=== PATIENT | male | born 1980 | race Caucasian/White ===

== ENCOUNTER → 2016-05-14 | Outpatient (CLI) | payer BC | LOC: RAD 18:59 | PROVIDERS: ATTEND Neurological Surgery | DX: G35 Multiple sclerosis (principal) | CPT/HCPCS: 70553; A9577 ==

== ENCOUNTER → 2016-06-01 | Outpatient (CLI) | payer BC ==
[2016-06-01 17:35] LABS: ABSOLUTE EOSINOPHILS # (AUTO) 0.2 10^3/uL (0.0-0.6); ABSOLUTE MONOCYTES (AUTO) 0.6 10^3/uL (0.1-1.4); ABSOLUTE NEUT (AUTO) 5.8 10^3/uL (1.7-8.2); BASOPHILS % (AUTO) 0.4 % (0-2); EOSINOPHILS % (AUTO) 2.3 % (0-6); HEMATOCRIT 45.5 % (37.9-51.0); HEMOGLOBIN 15.5 g/dL (13.5-17.0); LYMPHOCYTES % (AUTO) 22.9 % (13-45); MEAN CORPUSCULAR HEMOGLOBIN 29.8 pg (27.0-33.4); MEAN CORPUSCULAR HGB CONC 34.1 g/dL (32.0-36.0); MEAN CORPUSCULAR VOLUME 87 fl (80-97); MONOCYTES % (AUTO) 7.5 % (3-13); RED BLOOD COUNT 5.21 10^6/uL (4.35-5.55); SEGMENTED NEUTROPHILS % (AUTO) 66.9 % (42-78); WHITE BLOOD COUNT 8.6 10^3/uL (4.0-10.5)
[2016-06-01 17:51] LABS: ALANINE AMINOTRANSFERASE 54 U/L (21-72); ALKALINE PHOSPHATASE 71 U/L (38-126); ANION GAP 15 (5-19); ASPARTATE AMINO TRANSFERASE 27 U/L (17-59); BILIRUBIN,DIRECT 0.2 mg/dL (0.0-0.4); BILIRUBIN,TOTAL 0.8 mg/dL (0.2-1.3); BLOOD UREA NITROGEN 20 mg/dL (7-20); CALCIUM 9.8 mg/dL (8.4-10.2); CARBON DIOXIDE 27 mmol/L (22-30); CHLORIDE 101 mmol/L (98-107); CHOLESTEROL 183.59 mg/dL (0-200); CREATININE RESULT 0.89 mg/dL (0.52-1.25); Direct HDL 65 mg/dL (>40); GLUCOSE 85 mg/dL (75-110); POTASSIUM 4.2 mmol/L (3.6-5.0); SODIUM 142.8 mmol/L (137-145); TOTAL PROTEIN 7.9 g/dL (6.3-8.2); TRIGLYCERIDES 113 mg/dL (<150)
[2016-06-01 17:59] LABS: DIRECT LDL 84 mg/dL (<100)
[2016-06-01 18:17] LABS: THYROID STIMULATING HORMONE 1.55 uIU/mL (0.47-4.68)
[2016-06-01 18:42] LABS: C-REACTIVE PROTEIN < 5.0 mg/L (<10.0)
== END ==
LOC: OD 16:44
PROVIDERS: ATTEND Student in an Organized Health Care Education/Training Program
DX: G62.9 Polyneuropathy, unspecified (principal)
CPT/HCPCS: 36415; 80053; 80061; 82306; 82607; 84439; 84443; 85025; 86140

== ENCOUNTER → 2016-06-08 | Outpatient (CLI) | payer BC | LOC: OD 13:24 | PROVIDERS: ATTEND Student in an Organized Health Care Education/Training Program | DX: G62.9 Polyneuropathy, unspecified (principal); M62.81 Muscle weakness (generalized); M47.812 Spondylosis without myelopathy or radiculopathy, cervical region; M47.816 Spondylosis without myelopathy or radiculopathy, lumbar region; M47.814 Spondylosis without myelopathy or radiculopathy, thoracic region | CPT/HCPCS: 72050; 72070; 72110 ==

== ENCOUNTER → 2016-07-02 | Outpatient (CLI) | payer BC | LOC: OD 09:53 | PROVIDERS: ATTEND Student in an Organized Health Care Education/Training Program | DX: E55.9 Vitamin D deficiency, unspecified (principal); R53.82 Chronic fatigue, unspecified | CPT/HCPCS: 36415; 82306; 82607; 86340 ==

== ENCOUNTER 2019-04-06 11:48 | Emergency (ER) | payer BC ==
[2019-04-06 12:04] VITALS: BP 137/89
--- NOTE | 2019-04-06 12:29 | ER Document Report ---
ED Medical Screen (RME) - General Chief Complaint: Chest Pain Stated Complaint: CHEST DISCOMFORT Time Seen by Provider: 04/06/19 12:24 Primary Care Provider: BALBIR MOHAN DO [Primary Care Provider] - Follow up as needed TRAVEL OUTSIDE OF THE [place] 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 Patient describes the pain as a dull ache and sometimes tightness. He will feel the pain in his left scapular area as well at times. Denies drug allergies. Denies any prolonged immobilization, distance travel, recent surgery/trauma, pe rsonal cancer history, hormone use, smoking, or previous DVT/PE. Denies HARTLEY, fever, neck pain, URI, n/v/d, Abd pain, dysuria, back pain, or rash. I have treated and performed a rapid initial assessment of this patient. A comprehensive ED assessment and evaluation of the patient, analysis of test results and completion of medical decision making process will be conducted by additional ED providers. PHYSICAL EXAMINATION: GENERAL: Well-appearing, well-nourished and in no acute distress. A&Ox4. Answers questions appropriately. LUNGS: Breath sounds clear to auscultation bilaterally and equal. No wheezes rales or rhonchi. HEART: Regular rate and rhythm without murmurs, rubs, gallops. Extremities: No cyanosis, clubbing, or edema b/l. Karri negative bilaterally. No lower extremity asymmetry. NEUROLOGICAL: Normal speech, normal gait. PSYCH: Normal mood, normal affect. - Related Data Allergies/Adverse Reactions: No Known Allergies Allergy (Verified 04/06/19 12:24) Physical Exam - Vital signs Vitals: Temp Pulse Resp BP Pulse Ox 97.7 F 77 16 137/89 H 100 04/06/19 12:03 04/06/19 12:03 04/06/19 12:03 04/06/19 12:03 04/06/19 12:03 Course - Vital Signs Vital signs: Temp Pulse Resp BP Pulse Ox 97.7 F 77 16 137/89 H 100 04/06/19 12:03 04/06/19 12:03 04/06/19 12:03 04/06/19 12:03 04/06/19 12:03 Doctor's Discharge - Discharge Referrals: BALBIR MOHAN DO [Primary Care Provider] - Follow up as needed
--- NOTE | 2019-04-06 13:11 | RADIOLOGY REPORT (SQ) ---
EXAM DESCRIPTION: CHEST 2 VIEWS COMPLETED DATE/TIME: 04/06/2019 12:47 pm REASON FOR STUDY: CP COMPARISON: None. EXAM PARAMETERS: NUMBER OF VIEWS: two views TECHNIQUE: Digital Frontal and Lateral radiographic views of the chest acquired. RADIATION DOSE: NA LIMITATIONS: none FINDINGS: LUNGS AND PLEURA: No opacities, masses or pneumothorax. No pleural effusion. MEDIASTINUM AND HILAR STRUCTURES: No masses or contour abnormalities. HEART AND VASCULAR STRUCTURES: Heart normal size. No evidence for failure. BONES: No acute findings. HARDWARE: None in the chest. OTHER: No other significant finding. IMPRESSION: NO ACUTE RADIOGRAPHIC FINDING IN THE CHEST. TECHNICAL DOCUMENTATION: JOB ID: [id number] 2010 [employer]- All Rights Reserved Reading location - IP/workstation name: [email or web address]
[2019-04-06 13:28] LABS: ABSOLUTE EOSINOPHILS # (AUTO) 0.1 10^3/uL (0.0-0.6); ABSOLUTE LYMPHOCYTES (AUTO) 1.5 10^3/uL (0.5-4.7); ABSOLUTE MONOCYTES (AUTO) 0.4 10^3/uL (0.1-1.4); BASOPHILS % (AUTO) 0.7 % (0-2); EOSINOPHILS % (AUTO) 1.2 % (0-6); HEMATOCRIT 44.4 % (37.9-51.0); LYMPHOCYTES % (AUTO) 30.1 % (13-45); MEAN CORPUSCULAR HEMOGLOBIN 29.2 pg (27.0-33.4); MEAN CORPUSCULAR HGB CONC 33.8 g/dL (32.0-36.0); MEAN CORPUSCULAR VOLUME 86 fl (80-97); MONOCYTES % (AUTO) 8.4 % (3-13); PLATELET COUNT 173 10^3/uL (150-450); RED BLOOD COUNT 5.13 10^6/uL (4.35-5.55); RED CELL DISTRIBUTION WIDTH 14.2 % (11.5-14.0); SEGMENTED NEUTROPHILS % (AUTO) 59.6 % (42-78); TOTAL CELLS COUNTED % (AUTO) 100 %
[2019-04-06 13:49] LABS: ALBUMIN 4.5 g/dL (3.5-5.0); ALKALINE PHOSPHATASE 69 U/L (38-126); ANION GAP 9 (5-19); ASPARTATE AMINO TRANSFERASE 23 U/L (17-59); BILIRUBIN,DIRECT 0.2 mg/dL (0.0-0.4); BILIRUBIN,TOTAL 0.6 mg/dL (0.2-1.3); BLOOD UREA NITROGEN 22 mg/dL (7-20); CALCIUM 9.5 mg/dL (8.4-10.2); CARBON DIOXIDE 29 mmol/L (22-30); CHLORIDE 102 mmol/L (98-107); GLUCOSE 98 mg/dL (75-110); POTASSIUM 4.5 mmol/L (3.6-5.0); TOTAL PROTEIN 7.7 g/dL (6.3-8.2)
[2019-04-06] MEDS ORDERED: ASPIRIN 81 MG TABLET, CHEWABLE PO ONE (15:33)
--- NOTE | 2019-04-06 16:29 | ER Document Report ---
Entered by PALLAVI PULIDO SCRIBE 04/06/19 1414 Acting as scribe for:FRANKIE LAL DO ED General - General Chief Complaint: Chest Pain Stated Complaint: CHEST DISCOMFORT Time Seen by Provider: 04/06/19 12:24 Primary Care Provider: BALBIR MOHAN DO [NO LOCAL MD] - Follow up as needed Mode of Arrival: Ambulatory Information source: Patient Notes: This 38 year old male patient presents to the emergency department today with complaints of a x2-3 day history of chest pain. Patient states that the pain comes and goes. Patient states the first time the pain began he was sitting in a "stressful work meeting", and his fitbit was reporting a heart rate of 120 with this pain. He describes the pain as a "discomfort or tightness". Patient reports yesterday he had the same pain intermittently from the time he woke up until the time he went to bed. Patient states that he thinks anxiety could be playing a factor. Patient states he also has pain that radiates between his shoulder blades and down his left leg. TRAVEL OUTSIDE OF THE [place] 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 Lives with: Family Family History: DM, Hyperlipidemia, Hypertension Patient has suicidal ideation: No Patient has homicidal ideation: No - Medical History Medical History: Negative Surgical Hx: Negative Review of Systems - Review of Systems Constitutional: No symptoms reported EENT: No symptoms reported Cardiovascular: See HPI, Chest pain Respiratory: No symptoms reported Gastrointestinal: No symptoms reported Genitourinary: No symptoms reported Male Genitourinary: No symptoms reported Musculoskeletal: No symptoms reported Skin: No symptoms reported Hematologic/Lymphatic: No symptoms reported Neurological/Psychological: See HPI, Anxiety -: Yes All other systems reviewed and negative Physical Exam - Vital signs Vitals: Pulse BP Pulse Ox 77 137/89 H 100 04/06/19 12:01 04/06/19 12:01 04/06/19 12:01 - Notes Notes: Physical Exam: General: Alert, appears well. HEENT: Normocephalic. Atraumatic. PERRL. Extraocular movements intact. Oropharynx clear. Neck: Supple. Non-tender. Respiratory: No respiratory distress. Clear and equal breath sounds bilaterally. Cardiovascular: Regular rate and rhythm. Abdominal: Normal Inspection. Non-tender. No distension. Normal Bowel Sounds. Back: No gross abnormalities. Extremities: Moves all four extremities. Upper extremities: Normal inspection. Normal ROM. Lower extremities: Normal inspection. No edema. Normal ROM. Neurological: Normal cognition. AAOx4. Normal speech. Psychological: Normal affect. Normal Mood. Skin: Warm. Dry. Normal color. Course - Re-evaluation Re-evalutation: 04/06/19 16:58 MDM 38 year old with left sided fullness, achiness in chest - "not a pain per him." At rest and without relation to exertion. Some left side - shoulder and left scapula involvement too. No cardiac history. Used to smoke. - Vital Signs Vital signs: Temp Pulse Resp BP Pulse Ox 97.7 F 77 15 137/89 H 100 04/06/19 12:03 04/06/19 12:03 04/06/19 16:00 04/06/19 12:03 04/06/19 16:00 - Laboratory Result Diagrams: 04/06/19 13:01 04/06/19 13:01 Laboratory results interpreted by me: 04/06/19 04/06/19 13:01 13:01 RDW 14.2 H BUN 22 H Discharge - Discharge Clinical Impression: Chest pain Qualifiers: Chest pain type: unspecified Qualified Code(s): R07.9 - Chest pain, unspecified Condition: Good Disposition: HOME, SELF-CARE Instructions: Chest Pain of Unclear Cause ([facility]) Additional Instructions: See your doctor in follow and/ or the referral doctor. Take medicine as direc alfonzo. Please return here for chest pain, shortness of breath or other concerns. Referrals: BALBIR MOHAN DO [NO LOCAL MD] - Follow up as needed SAHARA PERES MD [ACTIVE STAFF] - Follow up as needed I personally performed the services described in the documentation, reviewed and edited the documentation which was dictated to the scribe in my presence, and it accurately records my words and actions.
--- NOTE | 2019-04-06 21:16 | EKG REPORT ---
SEVERITY:- NORMAL ECG - SINUS RHYTHM : Confirmed by: Fletcher Luna 06-Apr-2019 21:15:48
== END 2019-04-06 17:12 | disposition home or self-care (01) ==
LOC: ER 11:48
DX: R07.9 Chest pain, unspecified (principal); Z87.891 Personal history of nicotine dependence
CPT/HCPCS: 36415; 71046; 80053; 83690; 84484; 85025; 93005; 93010